=== PATIENT | female | born 1950 | race Caucasian/White ===

== ENCOUNTER 2017-08-27 23:11 | Inpatient (IN) | payer MEDICARE, BC ==
[~2017-08-27] VITALS: Ht 167.6 cm; Wt 61.2 kg
--- NOTE | 2017-08-27 23:14 | NUR ---
DR LASHAY CAZARES MD AT BEDSIDE FOR MSE.
--- NOTE | 2017-08-27 23:32 | NUR ---
LAB AT PT BEDSIDE FOR BLOOD DRAW.
[2017-08-27 23:39] LABS: BASOPHILS # (AUTO) 0.1 K/uL (0.0-8.0); BASOPHILS % (AUTO) 0.5 % (0.0-2.0); EOSINOPHILS # (AUTO) 0.1 K/uL (0.0-0.7); EOSINOPHILS % (AUTO) 0.7 % (0.0-7.0); HEMOGLOBIN 13.4 g/dL (10.9-14.3); LYMPHOCYTES # (AUTO) 1.2 K/uL (20.0-40.0); LYMPHOCYTES % (AUTO) 11.5 % (20.5-51.5); MEAN CORPUSCULAR HEMOGLOBIN 28.8 uug (24.7-32.8); MEAN CORPUSCULAR HGB CONC 34 g/dL (32.3-35.6); MEAN CORPUSCULAR VOLUME 83.5 fL (75.5-95.3); MONOCYTES # (AUTO) 0.5 K/uL (2.0-10.0); MONOCYTES % (AUTO) 5.1 % (0.0-11.0); NEUTROPHILS # (AUTO) 8.4 K/uL (1.8-8.9); NEUTROPHILS % (AUTO) 82.2 % (38.5-71.5); PLATELET COUNT (AUTO) 267 K/uL (179-408); RED BLOOD CELL COUNT(AUTO) 4.67 MIL/uL (3.63-4.92); WHITE BLOOD COUNT (AUTO) 10.3 K/uL (3.8-11.8)
--- NOTE | 2017-08-27 23:43 | NUR ---
XRAY AT PT BEDSIDE.
[2017-08-27 23:46] LABS: CREATININE 0.7 mg/dL (0.6-1.3); POTASSIUM 2.9 mmol/L (3.5-5.1)
[2017-08-27 23:50] LABS: BILIRUBIN,DIRECT 0.1 mg/dL (0.0-0.2); BILIRUBIN,TOTAL 0.3 mg/dL (0.2-1.0); TOTAL PROTEIN, SERUM 7.1 g/dL (6.4-8.2)
[2017-08-27] MEDS ORDERED: ONDANSETRON 4 MG/2 ML VIAL ONE (23:52)
[2017-08-28] MEDS ORDERED: ONDANSETRON 4 MG/2 ML VIAL IV ONE
[2017-08-28] MEDS ORDERED: ONDANSETRON 4 MG/2 ML VIAL ONE (00:10)
[2017-08-28] MEDS ORDERED: POT CHLORIDE/POT BICARB/CIT AC 25 MEQ TABLET.EFF PO ONE (01:00)
[2017-08-28] MEDS ORDERED: POTASSIUM BICARBONATE/CIT AC 25 MEQ TABLET.EFF ONE (01:05)
--- NOTE | 2017-08-28 01:57 | NUR ---
REPORT GIVEN TO ARLETH AREVALO.
[2017-08-28] MEDS ORDERED: IV D5 1/2 NS 1000 ML 1,000 ML IV PRN (02:07)
[2017-08-28] MEDS ORDERED: ACETAMINOPHEN 325 MG TABLET PO PRN (02:15)
[2017-08-28] MEDS ORDERED: ONDANSETRON 4 MG/2 ML VIAL IV PRN (02:15)
[2017-08-28] MEDS ORDERED: Z GUARD REMEDY PASTE 57 GM TUBE TOP PRN (02:15)
[2017-08-28] MEDS ORDERED: MAGNESIUM HYDROXIDE 30 ML LIQUID UDC PO PRN (02:15)
[2017-08-28] MEDS ORDERED: HYDROCODONE/APAP 5-325MG TABLET PO PRN (02:15)
[2017-08-28 03:03] LABS: *BILIRUBIN,URIN NEGATIVE (NEGATIVE); *BLOOD, URINE NEGATIVE (NEGATIVE); *CLARITY,URINE CLEAR (CLEAR); *COLOR,URINE YELLOW (YELLOW); *KETONES,URINE NEGATIVE (NEGATIVE); *PROTEIN,URINE NEGATIVE (NEGATIVE); *UROBILINOGEN,URINE 0.2 E.U./dl (NORMAL); LEUKOCYTE ESTERASE ,URINE NEGATIVE (NEGATIVE); NITRITE, URINE NEGATIVE (NEGATIVE); UGLUCOSE NEGATIVE (NEGATIVE)
[2017-08-28 03:07] VITALS: BP 101/59
--- NOTE | 2017-08-28 03:21 | NUR ---
Pt. admitted to med surg, under care of Dr. Gaviria Belongs List completed
--- NOTE | 2017-08-28 03:21 | NUR ---
*MORNING DOC TO [facility] DR CORLEY FOR ORTHO CONSULT*
[2017-08-28] MEDS: MORPHINE SULFATE 4 MG/1 ML DISP.SYRIN IV PRN ×5 (03:23→23:18)
--- NOTE | 2017-08-28 03:25 | NUR ---
RECEIVED PATIENT VIA GURNEY FROM ER. PATIENT IS A/O X4. PATIENT STATED SHE TRIPPED OVER A PILE OF PICTURES THAT WERE IN HER HOUSE. C/O PAIN. PATIENT GIVEN MORPHINE 2MG IV PRN PER RN. VSS. NO RESP. DISTRESS NOTED. HEPLOCK NOTED TO RIGHT WRIST #20 GAUGE WITH IVF INFUSING WELL. PATIENT IS NPO. F/C INTACT AND DRAINING CLEAR, YELLOW URINE. ORIENTED PATIENT TO ROOM AND CALL LIGHT. CALL LIGHT IN REACH. ALL NEEDS ATTENDED. WILL CONTINUE TO MONITOR.
[2017-08-28 03:33] LABS: BACTERIA,URINE NONE SEEN /HPF (NONE SEEN); RBC,URINE 0-3 /HPF (0-3); SQUAMOUS EPITHELIAL CELL,UR FEW /HPF (NONE SEEN)
[2017-08-28 04:00] VITALS: BP 110/54
--- NOTE | 2017-08-28 04:30 | NUR ---
PATIENT RESTING, DOZING ON AND OFF. MORPHINE EFFECTIVE. ICE APPLIED TO LEFT HIP FOR COMFORT/RELIEF. CALL LIGHT IN REACH. ALL NEEDS ATTENDED, WILL CONTINUE TO MONITOR.
--- NOTE | 2017-08-28 06:46 | NUR ---
PATIENT ASLEEP IN BED. NO S/S OF PAIN OR DISCOMFORT. NEUROVASCULAR CHECKS WNL. PEDAL PULSES PRESENT. VSS. IVF INFUSING WELL TO RIGHT FA #20 GAUGE. NO RESP. DISTRESS NOTED. CALL LIGHT IN REACH. ALL NEEDS ATTENDED, WILL CONTINUE TO MONITOR.
[2017-08-28 07:24] LABS: BASOPHILS % (AUTO) 0.4 % (0.0-2.0); EOSINOPHILS % (AUTO) 0.1 % (0.0-7.0); HEMATOCRIT 36.7 % (31.2-41.9); HEMOGLOBIN 12.5 g/dL (10.9-14.3); LYMPHOCYTES # (AUTO) 1.1 K/uL (20.0-40.0); LYMPHOCYTES % (AUTO) 10.2 % (20.5-51.5); MEAN CORPUSCULAR HEMOGLOBIN 28.7 uug (24.7-32.8); MEAN CORPUSCULAR HGB CONC 34 g/dL (32.3-35.6); MEAN CORPUSCULAR VOLUME 83.8 fL (75.5-95.3); MONOCYTES # (AUTO) 0.7 K/uL (2.0-10.0); MONOCYTES % (AUTO) 6.2 % (0.0-11.0); NEUTROPHILS # (AUTO) 8.9 K/uL (1.8-8.9); NEUTROPHILS % (AUTO) 83.1 % (38.5-71.5); PLATELET COUNT (AUTO) 251 K/uL (179-408); RED BLOOD CELL COUNT(AUTO) 4.38 MIL/uL (3.63-4.92); WHITE BLOOD COUNT (AUTO) 10.7 K/uL (3.8-11.8)
[2017-08-28 07:51] LABS: CREATININE 0.7 mg/dL (0.6-1.3); POTASSIUM 3.9 mmol/L (3.5-5.1)
--- NOTE | 2017-08-28 08:08 | NUR ---
Received patient asleep, non-labored breathing. With ongoing IV of D5 1/2 NS at 75 cc/hr
--- NOTE | 2017-08-28 11:00 | NUR ---
SEEN BY DR. CORLEY, CONSENT FOR INTRMEDULARRY NAILING OF L HIP FRACTURE ORDERED. MAY RESUME DIET ORDERED.
[2017-08-28 11:30] VITALS: BP 100/53
[2017-08-28] MEDS ORDERED: MORPHINE SULFATE 2 MG/1 ML DISP.SYRIN IV PRN (12:00)
[2017-08-28] MEDS: FAMOTIDINE. 20 MG/2 ML VIAL IV SCH (12:56)
[2017-08-28] MEDS: POTASSIUM CHLORIDE 20 MEQ in IV D5/ 0.9% NACL 1,000 ML IV PRN (14:10)
[2017-08-28 15:07] VITALS: BP 106/44
--- NOTE | 2017-08-28 16:00 | NUR ---
SEEN BY DR. HARTMANN
--- NOTE | 2017-08-28 16:30 | NUR ---
CONSENT FOR OPERATION, INTRA MEDULLARY NAILING OF LEFT HIP, SIGNED BY PATIENT
--- NOTE | 2017-08-28 19:45 | NUR ---
RECEIVED PATIENT AWAKE IN BED. C/O PAIN IN LEFT HIP. PATIENT GIVEN MORPHINE 2MG IV PRN PER RN. VSS. NO RESP. DISTRESS NOTED. ON RA. PEDAL PULSES PRESENT/NEUROVASCULAR CHECKS WNL. IVF INFUSING WELL TO RIGHT FA #20 GAUGE. F/C INTACT AND DRAINING CLEAR, YELLOW URINE. BED ALARM ON. CALL LIGHT IN REACH. ALL NEEDS ATTENDED. WILL CONTINUE TO MONITOR.
[2017-08-28 20:34] VITALS: BP 117/58
[2017-08-28] MEDS ORDERED: TEMAZEPAM 15 MG CAPSULE PO PRN (23:45)
--- NOTE | 2017-08-28 23:45 | NUR ---
PATIENT ASKING FOR SLEEPING PILL. CALLED OUT TO DR. CARMICHAEL FOR FURTHER ORDERS.
--- NOTE | 2017-08-29 00:05 | NUR ---
PATIENT GIVEN RESTORIL 15MG PO PRN FOR SLEEP. CALL LIGHT IN REACH. ALL NEEDS ATTENDED. WILL CONTINUE TO MONITOR.
[2017-08-29] MEDS: POTASSIUM CHLORIDE 20 MEQ in IV D5/ 0.9% NACL 1,000 ML IV PRN (03:24)
[2017-08-29 04:33] VITALS: BP 106/58
--- NOTE | 2017-08-29 06:00 | NUR ---
PATIENT AWAKE IN BED. IV NOTED TO RIGHT FA, INFILTRATED. HEPLOCK REMOVED. RIGHT ARM/HAND IS SWOLLEN, ELEVATED ON PILLOW. NEW IV HEPLOCK STARTED TO LEFT WRIST #20 GAUGE. PATIENT DENIES THE NEED FOR ANY PAIN MEDICATION AT THIS TIME. VSS. PATIENT IS READY FOR SURGERY. KEPT NPO SINCE MIDNIGHT ORDERED. BED ALARM ON. CALL LIGHT IN REACH. ALL NEEDS ATTENDED. WILL CONTINUE TO MONITOR AND ASSESS.
[2017-08-29 07:03] LABS: CREATININE 0.6 mg/dL (0.6-1.3); MAGNESIUM 2.2 mg/dL (1.8-2.4); PHOSPHOROUS 3.2 mg/dL (2.5-4.9); POTASSIUM 3.7 mmol/L (3.5-5.1)
--- NOTE | 2017-08-29 07:15 | NUR ---
PATIENT AWAKE IN BED WITH DAUGHTER AT BEDSIDE. PATIENTS DAUGHTER WILL TAKE PERSONAL BELONGINGS WITH WITH HER WHILE PATIENT IS IN SURGERY. AM SHIFT AT BEDSIDE AND AWARE DAUGHTER WILL TAKE BELONGINGS. ALL NEEDS ATTENDED.
[2017-08-29 07:17] LABS: BASOPHILS % (AUTO) 0.6 % (0.0-2.0); EOSINOPHILS % (AUTO) 0.4 % (0.0-7.0); HEMATOCRIT 37.7 % (31.2-41.9); HEMOGLOBIN 12.7 g/dL (10.9-14.3); LYMPHOCYTES # (AUTO) 1.2 K/uL (20.0-40.0); LYMPHOCYTES % (AUTO) 13.8 % (20.5-51.5); MEAN CORPUSCULAR HEMOGLOBIN 28.7 uug (24.7-32.8); MEAN CORPUSCULAR HGB CONC 34 g/dL (32.3-35.6); MEAN CORPUSCULAR VOLUME 85.2 fL (75.5-95.3); MONOCYTES # (AUTO) 0.6 K/uL (2.0-10.0); MONOCYTES % (AUTO) 7.4 % (0.0-11.0); NEUTROPHILS # (AUTO) 6.6 K/uL (1.8-8.9); NEUTROPHILS % (AUTO) 77.8 % (38.5-71.5); PLATELET COUNT (AUTO) 243 K/uL (179-408); RED BLOOD CELL COUNT(AUTO) 4.43 MIL/uL (3.63-4.92); WHITE BLOOD COUNT (AUTO) 8.5 K/uL (3.8-11.8)
[2017-08-29] MEDS: FAMOTIDINE. 20 MG/2 ML VIAL IV SCH (08:32)
[2017-08-29] MEDS: MORPHINE SULFATE 4 MG/1 ML DISP.SYRIN IV PRN (08:41)
--- NOTE | 2017-08-29 09:30 | NUR ---
pt off floor for surgery
[2017-08-29] MEDS ORDERED: BACITRACIN 50,000 UNITS VIAL ONE (11:04)
[2017-08-29 13:00] VITALS: BP 121/61
--- NOTE | 2017-08-29 13:07 | NUR ---
PT BACK IN ROOM, DRESSING DRY AND INTACT, VSS, IV INTACT, DENIES PAIN. ORDERS NOTED, WILL FOLLOW THROUGH AND CONTINUE TO CLOSELY MONITOR
[2017-08-29 13:30] VITALS: BP 113/57
[2017-08-29] MEDS ORDERED: IV D5W-0.45% NS +20 KCL 1,000 ML IV PRN (15:00)
[2017-08-29] MEDS ORDERED: FENTANYL CITRATE 100 MCG/2 ML AMPUL ONE (15:44)
[2017-08-29 15:57] VITALS: BP 108/63
[2017-08-29] MEDS ORDERED: CEFAZOLIN 1 G VIAL MC ONE (16:04)
[2017-08-29] MEDS ORDERED: DEXAMETHASONE SOD PHOSPHATE 4 MG INJ IV ONE (16:04)
[2017-08-29] MEDS ORDERED: IV NORMAL SALINE 1000 ML BAG IV ONE (16:04)
[2017-08-29] MEDS ORDERED: ONDANSETRON 4 MG/2 ML VIAL IV ONE (16:04)
[2017-08-29] MEDS ORDERED: SEVOFLURANE 250 ML BOTTLE IH ONE (16:04)
[2017-08-29] MEDS ORDERED: PROPOFOL 200 MG/20 ML BOTTLE IV ONE (16:04)
[2017-08-29] MEDS ORDERED: LIDOCAINE HCL 2% 20 ML VIAL MC ONE (16:04)
[2017-08-29] MEDS ORDERED: IRR NORMAL SALINE IRRIGATION 1,000 ML BOTTLE IR ONE (16:04)
[2017-08-29] MEDS: CEFAZOLIN 1 G in PREMIXED 1 EACH IV SCH (18:06)
--- NOTE | 2017-08-29 19:30 | NUR ---
Pt asleep at this time. In no acute distress. No s/sx of pain or SOB. IV site on left wrist area intact. Safety measure initiated and call shahid within reach.
[2017-08-29 20:28] VITALS: BP 129/78
--- NOTE | 2017-08-29 20:39 | NUR ---
Pt reported wanting to have a bm but is unable to. Last bm was Sunday. Offered prune juice and pt agreed. Informed Doctor Amilcar and awaiting for any new order.
--- NOTE | 2017-08-29 21:15 | NUR ---
Doctor Amilcar with order for MOM 30ml daily prn. Order read back, verified and carried out. Informed pt on new order and would like to wait 1-2 hours to see if prune juice will work, and if not pt will take MOM later.
[2017-08-29] MEDS ORDERED: MAGNESIUM HYDROXIDE 30 ML LIQUID UDC PO PRN (21:45)
[2017-08-30] MEDS: CEFAZOLIN 1 G in PREMIXED 1 EACH IV SCH (02:55)
[2017-08-30] MEDS: MORPHINE SULFATE 4 MG/1 ML DISP.SYRIN IV PRN ×2 (03:41→08:44)
[2017-08-30 04:00] VITALS: BP 114/66
--- NOTE | 2017-08-30 05:55 | NUR ---
AOx4. VS WNL. O2 sat at 97% on RA. Pt given Morphine PRN for left hip pain and effective. Ice compress provided to left hip area. Not in acute distress. IV site on left wrist intact and patent. FC intact and draining via gravity. Safety measure maintained and call shahid within reach.
[2017-08-30 06:50] LABS: CREATININE 0.6 mg/dL (0.6-1.3); MAGNESIUM 2.1 mg/dL (1.8-2.4); PHOSPHOROUS 3.5 mg/dL (2.5-4.9); POTASSIUM 3.9 mmol/L (3.5-5.1)
--- NOTE | 2017-08-30 07:25 | NUR ---
RECEIVED PATIENT AWAKE IN BED. C/O PAIN IN LEFT HIP. VSS. NO RESP. DISTRESS NOTED. ON RA. F/C INTACT AND DRAINING CLEAR, YELLOW URINE. BED ALARM ON. CALL LIGHT IN REACH. ALL NEEDS ATTENDED. WILL CONTINUE TO MONITOR.
[2017-08-30 07:27] LABS: BASOPHILS % (AUTO) 0.3 % (0.0-2.0); EOSINOPHILS % (AUTO) 0.1 % (0.0-7.0); HEMATOCRIT 35.4 % (31.2-41.9); HEMOGLOBIN 11.9 g/dL (10.9-14.3); LYMPHOCYTES # (AUTO) 1.5 K/uL (20.0-40.0); LYMPHOCYTES % (AUTO) 16.2 % (20.5-51.5); MEAN CORPUSCULAR HEMOGLOBIN 28.6 uug (24.7-32.8); MEAN CORPUSCULAR HGB CONC 34 g/dL (32.3-35.6); MEAN CORPUSCULAR VOLUME 84.8 fL (75.5-95.3); MONOCYTES # (AUTO) 0.9 K/uL (2.0-10.0); MONOCYTES % (AUTO) 10.4 % (0.0-11.0); NEUTROPHILS # (AUTO) 6.5 K/uL (1.8-8.9); PLATELET COUNT (AUTO) 231 K/uL (179-408); RED BLOOD CELL COUNT(AUTO) 4.18 MIL/uL (3.63-4.92)
[2017-08-30] MEDS: FAMOTIDINE. 20 MG/2 ML VIAL IV SCH (08:02)
[2017-08-30] MEDS ORDERED: HYDROCODONE/APAP 5-325MG TABLET PO PRN (10:30)
[2017-08-30 12:00] VITALS: BP 108/63
[2017-08-30] MEDS ORDERED: CALC-555 PO (15:20)
[2017-08-30] MEDS ORDERED: FAMO20TA8 PO (15:20)
[2017-08-30] MEDS ORDERED: MAGN400O6 PO (15:20)
[2017-08-30] MEDS ORDERED: HYDR-3326 PO (15:20)
[2017-08-30] MEDS ORDERED: TEMA15CA5 PO (15:20)
--- NOTE | 2017-08-30 16:05 | NUR ---
D/C ORDERS RECEIVED NOTED AND CARRIED OUT.D/C INSTRUCTION AND RN REPORT GIVEN TO ALINE AREVALO OVER ARU.D/C PT TO ARU VIA BED WITH I/V HEPLOCK PER MD ORDERS.
[2017-08-31] MEDS ORDERED: FAMOTIDINE 20 MG TABLET PO SCH (09:00)
== END 2017-08-30 16:05 | DRG 482 ==
LOC: ER 23:13 → MED 08-28 02:14
PROVIDERS: ADMIT Internal Medicine; ATTEND Internal Medicine
PROC: 0QS706Z Reposition Left Upper Femur with Intramedullary Internal Fixation Device, Open Approach (ICD-10-PCS; principal; 2017-08-29 10:41)
DX: S72.142A Displaced intertrochanteric fracture of left femur, initial encounter for closed fracture (principal); E87.6 Hypokalemia; K21.9 Gastro-esophageal reflux disease without esophagitis; W01.0XXA Fall on same level from slipping, tripping and stumbling without subsequent striking against object, initial encounter; Y92.89 Other specified places as the place of occurrence of the external cause; Z74.09 Other reduced mobility; I70.0 Atherosclerosis of aorta; M81.0 Age-related osteoporosis without current pathological fracture; K59.00 Constipation, unspecified
CPT/HCPCS: 36415; 70030-TC; 71045; 73502; 73503; 76000; 83735; 84100; 85025; 85730; 93005; A4217; A4649; A4663; J0690; J1100; J2270; J2405; J3010; J3480; J3490; J7030; J7042

== ENCOUNTER 2017-08-30 16:49 | Inpatient (IN) | payer MEDICARE ==
[~2017-08-30 16:49] MED LIST: CALC-555 PO; FAMO20TA8 PO; HYDR-3326 PO; MAGN400O6 PO; TEMA15CA5 PO
[2017-08-30] MEDS ORDERED: Z GUARD REMEDY PASTE 57 GM TUBE TOP PRN (17:00)
[2017-08-30 17:39] VITALS: BP 99/63
[2017-08-30 19:57] VITALS: BP 105/61
[2017-08-30] MEDS ORDERED: TEMAZEPAM 7.5 MG CAPSULE PO PRN (23:00)
[2017-08-30] MEDS ORDERED: MAGNESIUM HYDROXIDE 30 ML LIQUID UDC PO PRN (23:00)
[2017-08-30] MEDS ORDERED: TEMAZEPAM 15 MG CAPSULE PO PRN (23:00)
[2017-08-31] MEDS: TEMAZEPAM 15 MG CAPSULE PO PRN (00:11)
[2017-08-31] MEDS: HYDROCODONE/APAP 5-325MG TABLET PO PRN ×3 (05:57→20:53)
[2017-08-31 07:10] LABS: BASOPHILS # (AUTO) 0.1 K/uL (0.0-8.0); BASOPHILS % (AUTO) 0.9 % (0.0-2.0); EOSINOPHILS # (AUTO) 0.1 K/uL (0.0-0.7); EOSINOPHILS % (AUTO) 0.8 % (0.0-7.0); HEMATOCRIT 31.6 % (31.2-41.9); HEMOGLOBIN 10.9 g/dL (10.9-14.3); LYMPHOCYTES # (AUTO) 1.2 K/uL (20.0-40.0); LYMPHOCYTES % (AUTO) 14.8 % (20.5-51.5); MEAN CORPUSCULAR HEMOGLOBIN 28.9 uug (24.7-32.8); MEAN CORPUSCULAR HGB CONC 34 g/dL (32.3-35.6); MONOCYTES # (AUTO) 0.8 K/uL (2.0-10.0); MONOCYTES % (AUTO) 10.1 % (0.0-11.0); NEUTROPHILS % (AUTO) 73.4 % (38.5-71.5); PLATELET COUNT (AUTO) 238 K/uL (179-408); RED BLOOD CELL COUNT(AUTO) 3.76 MIL/uL (3.63-4.92); WHITE BLOOD COUNT (AUTO) 8.2 K/uL (3.8-11.8)
[2017-08-31 07:26] LABS: CREATININE 0.6 mg/dL (0.6-1.3); MAGNESIUM 2.3 mg/dL (1.8-2.4); PHOSPHOROUS 3.4 mg/dL (2.5-4.9); POTASSIUM 3.8 mmol/L (3.5-5.1)
[2017-08-31 08:30] VITALS: BP 107/70
[2017-08-31] MEDS: CALCIUM CARB/VITAMIN D 500MG-200UNITS TABLET PO SCH (08:48)
[2017-08-31] MEDS: FAMOTIDINE 20 MG TABLET PO SCH (08:48)
[2017-08-31 19:30] VITALS: BP 107/59
[2017-09-01] MEDS: TEMAZEPAM 15 MG CAPSULE PO PRN (00:40)
[2017-09-01] MEDS: HYDROCODONE/APAP 5-325MG TABLET PO PRN ×3 (06:17→17:24)
[2017-09-01 08:00] VITALS: BP 100/59
[2017-09-01] MEDS: CALCIUM CARB/VITAMIN D 500MG-200UNITS TABLET PO SCH (10:20)
[2017-09-01] MEDS: SENNOSIDES/DOCUSATE SODIUM TABLET PO SCH (10:20)
[2017-09-01] MEDS: FAMOTIDINE 20 MG TABLET PO SCH (10:20)
[2017-09-01 21:26] VITALS: BP 100/64
[2017-09-02] MEDS: HYDROCODONE/APAP 10-325 MG TABLET PO PRN ×4 (00:21→20:38)
[2017-09-02 07:30] VITALS: BP 95/52
[2017-09-02] MEDS: CALCIUM CARB/VITAMIN D 500MG-200UNITS TABLET PO SCH (08:02)
[2017-09-02] MEDS: FAMOTIDINE 20 MG TABLET PO SCH (08:02)
[2017-09-02] MEDS: SENNOSIDES/DOCUSATE SODIUM TABLET PO SCH (08:02)
[2017-09-02] MEDS: NAPHAZOLINE/PHENIR OPHT DROP 15 ML BOTTLE LEFTEYE PRN (18:33)
[2017-09-02 20:03] VITALS: BP 96/58
[2017-09-02] MEDS: TEMAZEPAM 15 MG CAPSULE PO PRN (22:42)
[2017-09-03] MEDS: HYDROCODONE/APAP 10-325 MG TABLET PO PRN ×5 (02:03→22:10)
[2017-09-03] MEDS: NAPHAZOLINE/PHENIR OPHT DROP 15 ML BOTTLE LEFTEYE PRN (06:31)
[2017-09-03 08:11] VITALS: BP 136/71
[2017-09-03] MEDS: FAMOTIDINE 20 MG TABLET PO SCH (09:26)
[2017-09-03] MEDS: CALCIUM CARB/VITAMIN D 500MG-200UNITS TABLET PO SCH (09:26)
[2017-09-03] MEDS: SENNOSIDES/DOCUSATE SODIUM TABLET PO SCH (09:28)
[2017-09-03 19:30] VITALS: BP 87/55
[2017-09-03] MEDS: TEMAZEPAM 15 MG CAPSULE PO PRN (22:09)
[2017-09-04 07:25] VITALS: BP 93/52
[2017-09-04] MEDS: CALCIUM CARB/VITAMIN D 500MG-200UNITS TABLET PO SCH (08:43)
[2017-09-04] MEDS: FAMOTIDINE 20 MG TABLET PO SCH (08:43)
[2017-09-04] MEDS: SENNOSIDES/DOCUSATE SODIUM TABLET PO SCH (08:44)
[2017-09-04] MEDS: HYDROCODONE/APAP 10-325 MG TABLET PO PRN ×3 (08:50→22:37)
[2017-09-04 20:04] VITALS: BP 95/52
[2017-09-04] MEDS: TEMAZEPAM 15 MG CAPSULE PO PRN (22:36)
[2017-09-05 08:36] VITALS: BP 95/57
[2017-09-05] MEDS: SENNOSIDES/DOCUSATE SODIUM TABLET PO SCH (08:52)
[2017-09-05] MEDS: HYDROCODONE/APAP 10-325 MG TABLET PO PRN ×3 (08:53→22:45)
[2017-09-05] MEDS: FAMOTIDINE 20 MG TABLET PO SCH (08:53)
[2017-09-05] MEDS: CALCIUM CARB/VITAMIN D 500MG-200UNITS TABLET PO SCH (08:55)
[2017-09-05] MEDS: CALCIUM CARBONATE 500 MG TAB.CHEW PO SCH ×2 (16:45→20:37)
[2017-09-05 20:07] VITALS: BP 92/63
[2017-09-05 20:45] VITALS: BP 110/66
[2017-09-05] MEDS: TEMAZEPAM 15 MG CAPSULE PO PRN (22:52)
[2017-09-06 07:41] VITALS: BP 94/39
[2017-09-06] MEDS: FAMOTIDINE 20 MG TABLET PO SCH (08:51)
[2017-09-06] MEDS: CHOLECALCIFEROL 1,000 UNIT TABLET PO SCH (08:51)
[2017-09-06] MEDS: CALCIUM CARBONATE 500 MG TAB.CHEW PO SCH ×2 (08:51→20:45)
[2017-09-06] MEDS: SENNOSIDES/DOCUSATE SODIUM TABLET PO SCH (08:51)
[2017-09-06] MEDS: HYDROCODONE/APAP 10-325 MG TABLET PO PRN ×2 (09:32→20:48)
[2017-09-06 15:32] LABS: BASOPHILS # (AUTO) 0.1 K/uL (0.0-8.0); BASOPHILS % (AUTO) 1.3 % (0.0-2.0); EOSINOPHILS # (AUTO) 0.1 K/uL (0.0-0.7); EOSINOPHILS % (AUTO) 2.1 % (0.0-7.0); HEMATOCRIT 28.6 % (31.2-41.9); HEMOGLOBIN 9.7 g/dL (10.9-14.3); LYMPHOCYTES # (AUTO) 1.3 K/uL (20.0-40.0); MEAN CORPUSCULAR HEMOGLOBIN 29.1 uug (24.7-32.8); MEAN CORPUSCULAR HGB CONC 34 g/dL (32.3-35.6); MEAN CORPUSCULAR VOLUME 85.6 fL (75.5-95.3); MONOCYTES # (AUTO) 0.5 K/uL (2.0-10.0); MONOCYTES % (AUTO) 8.7 % (0.0-11.0); NEUTROPHILS # (AUTO) 3.7 K/uL (1.8-8.9); NEUTROPHILS % (AUTO) 64.9 % (38.5-71.5); PLATELET COUNT (AUTO) 379 K/uL (179-408); RED BLOOD CELL COUNT(AUTO) 3.35 MIL/uL (3.63-4.92); WHITE BLOOD COUNT (AUTO) 5.7 K/uL (3.8-11.8)
[2017-09-06 20:27] VITALS: BP 94/63
[2017-09-06] MEDS: TEMAZEPAM 15 MG CAPSULE PO PRN (23:25)
[2017-09-07 07:00] VITALS: BP 94/58
[2017-09-07] MEDS: HYDROCODONE/APAP 10-325 MG TABLET PO PRN ×3 (08:55→23:54)
[2017-09-07] MEDS: SENNOSIDES/DOCUSATE SODIUM TABLET PO SCH (08:55)
[2017-09-07] MEDS: CHOLECALCIFEROL 1,000 UNIT TABLET PO SCH (08:55)
[2017-09-07] MEDS: FAMOTIDINE 20 MG TABLET PO SCH (08:55)
[2017-09-07] MEDS: CALCIUM CARBONATE 500 MG TAB.CHEW PO SCH ×2 (08:55→20:51)
[2017-09-07 19:30] VITALS: BP 91/51
[2017-09-08] MEDS: HYDROCODONE/APAP 10-325 MG TABLET PO PRN ×3 (04:58→20:30)
[2017-09-08 07:00] VITALS: BP 97/51
[2017-09-08] MEDS: SENNOSIDES/DOCUSATE SODIUM TABLET PO SCH (09:04)
[2017-09-08] MEDS: CHOLECALCIFEROL 1,000 UNIT TABLET PO SCH (09:04)
[2017-09-08] MEDS: CALCIUM CARBONATE 500 MG TAB.CHEW PO SCH ×2 (09:04→20:30)
[2017-09-08] MEDS: FAMOTIDINE 20 MG TABLET PO SCH (09:04)
[2017-09-08 19:30] VITALS: BP 96/47
[2017-09-09 08:00] VITALS: BP 97/51
[2017-09-09] MEDS: FAMOTIDINE 20 MG TABLET PO SCH (08:18)
[2017-09-09] MEDS: SENNOSIDES/DOCUSATE SODIUM TABLET PO SCH (08:18)
[2017-09-09] MEDS: CALCIUM CARBONATE 500 MG TAB.CHEW PO SCH ×2 (08:18→20:19)
[2017-09-09] MEDS: CHOLECALCIFEROL 1,000 UNIT TABLET PO SCH (08:18)
[2017-09-09] MEDS: HYDROCODONE/APAP 10-325 MG TABLET PO PRN ×3 (08:19→21:11)
[2017-09-09 12:26] VITALS: BP_SYST 104; BP_SYST 112; BP_SYST 98; BP_DIAS 52; BP_DIAS 61; BP_DIAS 66
[2017-09-09 19:30] VITALS: BP 92/51
[2017-09-10 08:24] VITALS: BP 96/54
[2017-09-10] MEDS: HYDROCODONE/APAP 10-325 MG TABLET PO PRN ×2 (09:14→16:01)
[2017-09-10] MEDS: CALCIUM CARBONATE 500 MG TAB.CHEW PO SCH (09:14)
[2017-09-10] MEDS: FAMOTIDINE 20 MG TABLET PO SCH (09:15)
[2017-09-10] MEDS: CHOLECALCIFEROL 1,000 UNIT TABLET PO SCH (09:15)
[2017-09-10] MEDS: SENNOSIDES/DOCUSATE SODIUM TABLET PO SCH (09:15)
== END 2017-09-10 17:05 | disposition home health service (06) | DRG 561 ==
PROVIDERS: ADMIT Physical Medicine & Rehabilitation Pain Medicine; ATTEND Physical Medicine & Rehabilitation Pain Medicine
DX: S72.142D Displaced intertrochanteric fracture of left femur, subsequent encounter for closed fracture with routine healing (principal); K21.9 Gastro-esophageal reflux disease without esophagitis; W19.XXXD Unspecified fall, subsequent encounter; Z82.49 Family history of ischemic heart disease and other diseases of the circulatory system; Z83.3 Family history of diabetes mellitus; Z82.61 Family history of arthritis; Z84.89 Family history of other specified conditions
CPT/HCPCS: 36415; 70030-TC; 73502; 83735; 84100; 85025; 92526; 92610; 97110; 97112; 97116; 97165; 97530; 97535; A4663

== ENCOUNTER 2018-11-16 19:41 | Emergency (ER) | payer BC, MEDICARE ==
[~2018-11-16] VITALS: Ht 160 cm; Wt 56.7 kg
--- NOTE | 2018-11-16 20:03 | NUR ---
Patient ambulated steady with walker. Speech is clear, speaks in complete sentences. A/Ox4. No neuro deficits. Patient came in for c/o R.Knee pain since last night. Patient reported that she was trying to close her door at home, and was startled by her dog's bark causing her to hyper-reflex and stated that she might have pulled a muscle or sprained it. Patient in bed at lowest position, sr upx2, call light within reach. Fall precautions implemented per protocol.
--- NOTE | 2018-11-16 20:24 | NUR ---
Patient transfered to CT by tech via w/c. In stable condition.
--- NOTE | 2018-11-16 20:34 | NUR ---
Patient back in room from CT. Denies any acute distress.
[2018-11-16 21:53] VITALS: BP 102/73
== END 2018-11-16 21:54 | disposition home or self-care (01) ==
LOC: ER 19:41
DX: S82.141A Displaced bicondylar fracture of right tibia, initial encounter for closed fracture (principal); Z79.899 Other long term (current) drug therapy; W01.0XXA Fall on same level from slipping, tripping and stumbling without subsequent striking against object, initial encounter; Y93.89 Activity, other specified; Y92.89 Other specified places as the place of occurrence of the external cause; Y99.8 Other external cause status
CPT/HCPCS: 73700; A4663